=== PATIENT | female | born 1965 | race Caucasian/White ===

== ENCOUNTER 2022-12-06 20:03 | Inpatient (IN) | payer OTHER ==
[~2022-12-06] VITALS: Ht 162.6 cm; Wt 61.5 kg
[2022-12-06 20:54] LABS: BASOPHILS ABSOLUTE AUTO 0.03 K/mm3 (0.00-0.23); BASOPHILS PERCENT AUTO 1 % (0-2); EOSINOPHILS ABSOLUTE AUTO 0.01 K/mm3 (0.00-0.68); EOSINOPHILS PERCENT AUTO 0 % (0-6); Hematocrit 26.5 % (33.0-51.0); Hemoglobin 8.1 g/dL (11.5-16.0); IMMATURE GRAN ABSOLUTE AUTO 0.03 K/mm3 (0.00-0.10); IMMATURE GRAN PERCENT AUTO 1 % (0-1); LYMPHOCYTES ABSOLUTE AUTO 1.41 K/mm3 (0.84-5.20); LYMPHOCYTES PERCENT AUTO 47 % (21-46); MONOCYTES ABSOLUTE AUTO 0.23 K/mm3 (0.16-1.47); MONOCYTES PERCENT AUTO 8 % (4-13); Mean Corpuscular HGB 31.9 pg (26.0-34.0); Mean Corpuscular HGB Conc 30.6 g/dL (31.5-36.5); Mean Corpuscular Volume 104 fL (80-100); Mean Platelet Volume 10.4 fL (9.1-12.4); NEUTROPHILS ABSOLUTE AUTO 1.29 K/mm3 (1.96-9.15); NEUTROPHILS PERCENT AUTO 43 % (41-73); RDW Standard Deviation 69.1 fL (35.1-46.3); Red Blood Cell Count 2.54 M/mm3 (3.80-5.20)
[2022-12-06 20:58] LABS: Platelet Count 42 K/mm3 (150-400)
[2022-12-06 21:12] LABS: Albumin, Blood 1.9 g/dL (3.4-5.0); Albumin/Globulin Ratio 0.2 (0.8-1.8); Bilirubin, Total 3.8 mg/dL (0.1-1.0); Bun/Creatinine Ratio 14.6 (12.0-20.0); Calcium, Blood 7.7 mg/dL (8.5-10.1); Creatinine, Blood 0.62 mg/dL (0.40-1.00); Globulin, Blood 8.4 g/dL (2.2-4.0); Potassium, Blood 3.3 mmol/L (3.5-5.5); Total Protein, Blood 10.3 g/dL (6.4-8.2)
[2022-12-06 23:02] LABS: Magnesium, Blood 1.4 mg/dL (1.6-2.4)
[2022-12-07] VITALS (45 sets, daily range): BP systolic 112–148; BP diastolic 52–101
[2022-12-07 00:02] LABS: International Normalized Ratio 1.95; Prothrombin Time Results 19.7 Sec (9.7-11.5)
[2022-12-07 00:39] LABS: Influenza A, PCR NEGATIVE (NEGATIVE); Influenza B, PCR NEGATIVE (NEGATIVE); Resp Syncytial Virus, PCR NEGATIVE (NEGATIVE); SARS-Cov-2 (COVID-19) PCR, MMC NEGATIVE (NEGATIVE)
[2022-12-07 01:49] LABS: Hematocrit 23.6 % (33.0-51.0); Hemoglobin 7.4 g/dL (11.5-16.0)
--- NOTE | 2022-12-07 02:45 | NUR ---
ADMISSION REPORT RECIEVED FROM ER NURSE. PATIENT WENT TO CT PRIOR TO COMING TO PCU, PER ER NURSE, PATIENT WAS NOT ABLE TO COMPLETE CT DUE TO ANXIETY. PATIENT ARRIVES TO PCU 10 COUGHING AND GAGGING INTO EMESIS BAG. RED TINGED SPUTUM IN EMESIS BAG. PATIENT MOVED TO PCU BED WITH ASSISTANCE OF STAFF. PATIENT CLEANED UP AND NEW ATTENDS IN PLACE. PATIENT IS ALERT TO SELF ONLY STATING HER NAME AND , OTHERWISE UNABLE TO ANSWER ANY OTHER ORIENTATION QUESTIONS. NEW IV PLACED. BP STABLE, TACHYCARDIC, PATIENT ON ROOM AIR WITH SPO2 >93%. BED ALARM ON FOR SAFETY.
--- NOTE | 2022-12-07 06:19 | NUR ---
SHIFT SUMMARY PATIENT WAKES TO VERBAL STIMULI, ORIENTED TO SELF ONLY. BP STABLE, PATIENT TACHYCARDIC SINCE ADMISSION, REMAINS ON RA WITH SPO2 >92%. PATIENT COUGHING UP BLOOD TINGED SPUTUM, ABOUT 100MLs. PUREWICK IN PLACE D/T INCONTINENCE. PATIENT REPOSITIONING SELF IN BED. NO CHANGES SINCE ADMISSION, WILL REPORT TO DAY SHIFT RN.
--- NOTE | 2022-12-07 07:33 | NUR ---
ASSUMED CARE: PT RESTING QUIETLY IN BED AT THIS TIME. SANDOSTATIN GTT AND PROTONIX GTTS RUNNING WELL CONTINUOUS IV FLUIDS. PT IS SOMNOLENT, RESPONSIVE TO NOXIOUS STIMULI. BED ALARM IN PLACE. NO ACUTE NEEDS OR CONCERNS AT THIS TIME.
[2022-12-07 08:14] LABS: BASOPHILS ABSOLUTE AUTO 0.02 K/mm3 (0.00-0.23); BASOPHILS PERCENT AUTO 1 % (0-2); EOSINOPHILS ABSOLUTE AUTO 0.03 K/mm3 (0.00-0.68); EOSINOPHILS PERCENT AUTO 1 % (0-6); Hematocrit 22.7 % (33.0-51.0); Hematocrit 22.8 % (33.0-51.0); Hemoglobin 7.1 g/dL (11.5-16.0); IMMATURE GRAN ABSOLUTE AUTO 0.02 K/mm3 (0.00-0.10); IMMATURE GRAN PERCENT AUTO 1 % (0-1); LYMPHOCYTES ABSOLUTE AUTO 1.44 K/mm3 (0.84-5.20); LYMPHOCYTES PERCENT AUTO 52 % (21-46); MONOCYTES ABSOLUTE AUTO 0.29 K/mm3 (0.16-1.47); MONOCYTES PERCENT AUTO 11 % (4-13); Mean Corpuscular HGB 32.6 pg (26.0-34.0); Mean Corpuscular HGB Conc 31.3 g/dL (31.5-36.5); Mean Corpuscular Volume 104 fL (80-100); Mean Platelet Volume 10.3 fL (9.1-12.4); NEUTROPHILS ABSOLUTE AUTO 0.97 K/mm3 (1.96-9.15); NEUTROPHILS PERCENT AUTO 35 % (41-73); RDW Coefficient Variation 18.1 % (11.7-14.2); RDW Standard Deviation 68.1 fL (35.1-46.3); Red Blood Cell Count 2.18 M/mm3 (3.80-5.20); White Blood Cell Count 2.77 K/mm3 (4.00-11.30)
[2022-12-07 08:29] LABS: Albumin/Globulin Ratio 0.3 (0.8-1.8); Bilirubin, Total 5.3 mg/dL (0.1-1.0); Bun/Creatinine Ratio 10.7 (12.0-20.0); Calcium, Blood 7.7 mg/dL (8.5-10.1); Creatinine, Blood 0.56 mg/dL (0.40-1.00); Globulin, Blood 7.1 g/dL (2.2-4.0); Potassium, Blood 3.8 mmol/L (3.5-5.5); Total Protein, Blood 9.1 g/dL (6.4-8.2)
[2022-12-07 08:42] LABS: Platelet Count 34 K/mm3 (150-400)
--- NOTE | 2022-12-07 08:50 | NUR ---
ROB DAVIS AND ZENON AT BEDSIDE. PT COUGHING UP RUST COLORED SECRETIONS. DR INSTRUCTS FOR 1 UNIT OF BLOOD TO BE TRANSFUSED. DRS NOTIFIED OF CRITICAL LACTIC AND CRITICAL PLATELET COUNTS. PT'S HR INCREASED TO 130S WITH COUGHING WHILE DRS AT BEDSIDE. AWAITING GI CONSULT. DR DAVIS WISHES FOR PT TO BE TRANSFERRED TO ICU DUE TO ACTIVELY BLEEDING, COUGHING UP BLOOD, TACHYCARDIA. PT SHAKING T/O BUT DR DAVIS BENT PT'S WRIST AND FEELS THAT SHAKING IS DUE TO AMMONIA AND NOT WITHDRAWALS. RECREATIONAL VEHICLE REPAIRER AWARE OF TRANSFER ORDER.
--- NOTE | 2022-12-07 09:43 | NUR ---
PT TRANSFERRED TO ICU VIA BED BY TWO STAFF MEMBERS. BLOOD INFUSING WELL OCTREOTIDE AND PROTONIX GTTS. REPORT GIVEN TO GISELLE RUBY.
--- NOTE | 2022-12-07 09:56 | NUR ---
PT'S SISTER CALLED TO GET UPDATE AND STATED THAT SHE IS THE ONE WHO BROUGHT PT IN AFTER SHE WAS "QUIET, VOMITING AND SHAKEY AT DINNER." STATES SISTER DRINKS BEER ALL DAY LONG FROM TIME OF WAKING TO TIME OF SLEEP. PT TOLD HER SISTER THAT SHE DRANK "A CUP" OF BEER YESTERDAY BUT SISTER STATES THAT COULD BE MORE. STATES PT HAS A WHO IS A DATABASE CONSULTANT IN [place] THAT MULTIPLE FAMILY MEMBERS HAVE BEEN TRYING TO GET AHOLD OF. SISTER AND DAUGHTER'S NUMBERS PROVIDED. INFORMATION GIVEN TO ELECTRICAL MAINTENANCE SUPERVISOR THAT WAS OBTAINED FROM PT'S SISTER.
--- NOTE | 2022-12-07 10:09 | NUR ---
TRANSFER PT ARRIVED FROM PCU 10, REPORT FROM FLORI REYES. PT ALERT, COUGHING/RETCHING SHE WAS MOVED TO NEW BED. PRBC INFUSING WELL OCTREOTIDE AND PANTOPRAZOLE. US TECH HERE FOR ECHO. ZOFRAN GIVEN FOR NAUSEA. PT'S SISTER CALLED AND WAS UPDATED BY AMY.
--- NOTE | 2022-12-07 11:53 | NUR ---
REASSESSMENT PT HAS BEEN RESTING IN BED SINCE TRANSFER. SHE HAD ECHO AND ABD ULTRASOUND COMPLETED. PT REFUSED CT OF THE ABDOMEN LAST NIGHT. ATTEMPTED TO GET PT TO AGREE TO ONE THIS MORNING, BUT SHE IS STILL REFUSING. SHE IS ORIENTED TO SELF, KNOWS SHE IS IN THE HOSPITAL, BUT THOUGHT IT WAS THREE STARKEY, AND SAID 2023 FOR THE YEAR. LUNGS ARE CLEAR, 99% ON RA, OCCASIONAL COUGH. SINUS TACH IN THE LOW 100S, BP STABLE. NO EDEMA. ATTENDS ON WITH PUREWICK IN PLACE. CONTINUING TO MONITOR.
[2022-12-07 13:54] LABS: Hematocrit 26.3 % (33.0-51.0); Hemoglobin 8.4 g/dL (11.5-16.0)
[2022-12-07 14:34] LABS: Magnesium, Blood 1.3 mg/dL (1.6-2.4)
--- NOTE | 2022-12-07 17:24 | NUR ---
12/07/22 [address] CHERRY IN ICU 13; SEE ANESTHESIA RECORDS.
[2022-12-07 18:30] LABS: Hematocrit 25.6 % (33.0-51.0); Hemoglobin 8.1 g/dL (11.5-16.0)
--- NOTE | 2022-12-07 18:32 | NUR ---
SHIFT SUMMARY PT HAD HER EGD THIS EVENING AND IS AWAKE AFTER, BUT VERY GROGGY STILL. AFTER RECEIVING ATIVAN FOR A CIWAA OF 10 HER NAUSEA AND TREMORS STOPPED AND SHE SLEPT FOR A COUPLE HOURS. HER LUNGS REMAIN CLEAR, 99% RA. SR WITH FREQUENT PAC. BP STABLE. INCONTINENT OF URINE. ATTEMPTED PURE WICK THROUGHOUT THE DAY, BUT PT MOVES SO MUCH IN BED THAT IT DISLODGES AND DOESN'T WORK. ATTENDS ON CURRENTLY. POST EGD, DR. ARMENTA GAVE ORDERS TO STOP OCTREOTIDE, SWITCH PROTONIX TO BID, AND ADVANCE DIET TOELRATED WHEN PT MORE ALERT. PT'S SISTER AND MJ AT THE BEDSIDE AND WERE UPDATED BY DR. ARMENTA.
--- NOTE | 2022-12-07 21:05 | NUR ---
ASSUMED CARE AT 1900 PATIENT RESPONDS TO VERBAL STIMULI, STATES NAME AND FOLLOWS COMMANDS. MUMBLES AND FALLS ASLEEP DURING CONVERSATION. 02 SATS 99% ON RA, RR 16. HR SR 80s, BP STABLE. PATIENT HAVING NAUSEA, AND SPITTING UP MUCOUSY/PINK TINGED SPUTUM. MEDICATED FOR NAUSEA PER EMAR. INCONTINENT, ATTENDS IN PLACE. CALL LIGHT IN REACH
[2022-12-07 22:41] LABS: Hematocrit 27.2 % (33.0-51.0); Hemoglobin 8.6 g/dL (11.5-16.0)
[2022-12-08] VITALS (30 sets, daily range): BP systolic 104–143; BP diastolic 58–90
[2022-12-08 05:33] LABS: BASOPHILS ABSOLUTE AUTO 0.02 K/mm3 (0.00-0.23); BASOPHILS PERCENT AUTO 1 % (0-2); EOSINOPHILS ABSOLUTE AUTO 0.05 K/mm3 (0.00-0.68); EOSINOPHILS PERCENT AUTO 1 % (0-6); Hematocrit 27.2 % (33.0-51.0); Hemoglobin 8.9 g/dL (11.5-16.0); IMMATURE GRAN ABSOLUTE AUTO 0.01 K/mm3 (0.00-0.10); IMMATURE GRAN PERCENT AUTO 0 % (0-1); LYMPHOCYTES ABSOLUTE AUTO 1.78 K/mm3 (0.84-5.20); LYMPHOCYTES PERCENT AUTO 45 % (21-46); MONOCYTES ABSOLUTE AUTO 0.46 K/mm3 (0.16-1.47); MONOCYTES PERCENT AUTO 12 % (4-13); Mean Corpuscular HGB 32.4 pg (26.0-34.0); Mean Corpuscular HGB Conc 32.7 g/dL (31.5-36.5); Mean Platelet Volume 10.8 fL (9.1-12.4); NEUTROPHILS ABSOLUTE AUTO 1.63 K/mm3 (1.96-9.15); NEUTROPHILS PERCENT AUTO 41 % (41-73); RDW Coefficient Variation 19.6 % (11.7-14.2); RDW Standard Deviation 71.1 fL (35.1-46.3); Red Blood Cell Count 2.75 M/mm3 (3.80-5.20); White Blood Cell Count 3.95 K/mm3 (4.00-11.30)
[2022-12-08 05:42] LABS: International Normalized Ratio 2.1; Prothrombin Time Results 21.1 Sec (9.7-11.5)
[2022-12-08 05:48] LABS: Mean Corpuscular Volume 99 fL (80-100)
[2022-12-08 05:49] LABS: Platelet Count 37 K/mm3 (150-400)
[2022-12-08 06:01] LABS: Albumin, Blood 1.9 g/dL (3.4-5.0); Albumin/Globulin Ratio 0.3 (0.8-1.8); Bilirubin, Total 5.6 mg/dL (0.1-1.0); Bun/Creatinine Ratio 13.7 (12.0-20.0); Calcium, Blood 7.7 mg/dL (8.5-10.1); Creatinine, Blood 0.73 mg/dL (0.40-1.00); Globulin, Blood 7.3 g/dL (2.2-4.0); Potassium, Blood 2.9 mmol/L (3.5-5.5); Total Protein, Blood 9.2 g/dL (6.4-8.2)
--- NOTE | 2022-12-08 06:12 | NUR ---
SHIFT SUMMARY PATIENT RESPONDS TO VERBAL STIMULI, ORIENTED TO SELF AND FOLLOWING DIRECTIONS. SLEPT MOST THE NIGHT. 02 SATS >95% ON RA. HR SR 85. BP STABLE. INCONTINENT OF BLADDER, SEVERAL UNMEASURED VOIDS. NO BOWEL MOVEMENT THIS SHIFT. INDEPENDENT WITH REPOSITIONING. CIWA OF 5. CALL LIGHT IN REACH
[2022-12-08 10:35] LABS: Hematocrit 28.3 % (33.0-51.0)
--- NOTE | 2022-12-08 11:49 | NUR ---
REASSESSMENT PT HAS BEEN RESTING IN BED THROUGHOUT THE MORNING. SHE REMAINS ALERT, ORIENTED TO SELF, KNOWS SHE IS IN THE HOSPITAL. THIS MORNING SHE WAS COUGHING CONSTANTLY WHILE AWAKE UNTIL SHE GAGGED. DR. DAVIS ORDERED SOME COUGH MEDICINE AND THAT HAS HELPED A LOT WITH THE COUGHING. LUNGS REMAIN CLEAR AND SPO2 99% ON RA. SIT WITH RATE IN THE LOW 100S, BP STABLE. PT IS TRYING TO EAT SOME SOUP CURRENTLY. PASSING GAS, BUT NO BM. INCONTINENT OF URINE, ATTENDS ON. CONTINUING TO MONITOR.
[2022-12-08 16:27] LABS: Hematocrit 28.1 % (33.0-51.0)
[2022-12-08 17:01] LABS: Bun/Creatinine Ratio 20.2 (12.0-20.0); Calcium, Blood 7.8 mg/dL (8.5-10.1); Creatinine, Blood 0.74 mg/dL (0.40-1.00); Potassium, Blood 3.1 mmol/L (3.5-5.5)
--- NOTE | 2022-12-08 17:25 | NUR ---
SHIFT SUMMARY: PT TRANSFERED TO PCU THIS AFTERNOON, ARRIVES APPROX 1310. PT ARRIVES ALERT, ORIENTED TO SELF AND STATES SHE IS IN THE HOSPITAL. PT ORIENTED TO ROOM, V/U. WHEN PT ASKED ABOUT ALCOHOL CONSUMPTION, PT DENIES DAILY DRINKING, STATES SHE DRINKS "ONCE IN A WHILE". PT EDUCATED RE: PURPOSE OF CIWA SCORES AND SAFETY R/TO WITHDRAWAL, V/U BUT DOES NOT OFFER MORE INFORMATION RE: CONSUMPTION FREQUENCY. PT RESTS QUIETLY IN ROOM W/FAMILY AT BEDSIDE UNTIL APPROX 1530, WHEN SHE BEGINS TO TALK ABOUT WANTING TO GO HOME. PT DIFFICULT TO REDIRECT, FREQUENTLY ATTEMPTING TO EXIT BED, REQUESTING W/C ESCORT TO ELEVATORS. CIWA SCORED AND PT MEDICATED PER ORDERS. PT HAS PRODUCED 3 BMs THIS AFTERNOON W/SOME BLOOD IN STOOL. LATEST DOSE OF LACTULOSE HELD. AT THIS TIME, PT RESTING QUIETLY IN BED AND TALKING WITH FAMILY IN ROOM. CLINICAL SITTER AT BEDSIDE, BED ALARM ON, AND REMOTE MONITORING IN PLACE.
--- NOTE | 2022-12-08 18:45 | NUR ---
UPDATE: DR ARMENTA HAS BEEN NOTIFIED RE: BLOOD IN STOOL AND PROVIDED W/PT's SISTER's CONTACT INFO TO DISCUSS PLAN OF CARE.
[2022-12-09 03:14] VITALS: BP 124/76
[2022-12-09 03:43] LABS: BASOPHILS ABSOLUTE AUTO 0.02 K/mm3 (0.00-0.23); BASOPHILS PERCENT AUTO 1 % (0-2); EOSINOPHILS ABSOLUTE AUTO 0.05 K/mm3 (0.00-0.68); EOSINOPHILS PERCENT AUTO 1 % (0-6); Hematocrit 27.3 % (33.0-51.0); Hemoglobin 8.7 g/dL (11.5-16.0); IMMATURE GRAN ABSOLUTE AUTO 0.01 K/mm3 (0.00-0.10); IMMATURE GRAN PERCENT AUTO 0 % (0-1); LYMPHOCYTES PERCENT AUTO 44 % (21-46); MONOCYTES ABSOLUTE AUTO 0.45 K/mm3 (0.16-1.47); MONOCYTES PERCENT AUTO 12 % (4-13); Mean Corpuscular HGB 32.1 pg (26.0-34.0); Mean Corpuscular HGB Conc 31.9 g/dL (31.5-36.5); Mean Corpuscular Volume 101 fL (80-100); Mean Platelet Volume 10.5 fL (9.1-12.4); NEUTROPHILS PERCENT AUTO 41 % (41-73); NRBC ABSOLUTE 0.02 K/mm3 (0.00-0.02); NRBC Auto 0.6 /100 WBC (0.0-0.2); RDW Coefficient Variation 19.6 % (11.7-14.2); Red Blood Cell Count 2.71 M/mm3 (3.80-5.20); White Blood Cell Count 3.63 K/mm3 (4.00-11.30)
[2022-12-09 03:46] LABS: Platelet Count 42 K/mm3 (150-400)
[2022-12-09 04:03] LABS: Bun/Creatinine Ratio 27.8 (12.0-20.0); Calcium, Blood 7.6 mg/dL (8.5-10.1); Creatinine, Blood 0.61 mg/dL (0.40-1.00); Magnesium, Blood 1.5 mg/dL (1.6-2.4); Potassium, Blood 2.8 mmol/L (3.5-5.5)
[2022-12-09 05:29] LABS: Phosphorus, Blood 3.6 mg/dL (2.5-4.9)
--- NOTE | 2022-12-09 06:22 | NUR ---
SHIFT SUMMARY PT VERY LETHARGIC THROUGHOUT SHIFT, RESPONDED TO VERBAL STIMULI, A&O TO SELF. PT MORE ALERT SINCE APPROXIMATELY 0600, A&O TO SELF AND PLACE. BP STABLE, PLACED PT ON TELE AT APPROXIMATELY 0600, TELE SHOWING SINUS 90's. PT DENIES CP/PRESSURE. SpO2> 92% RA, DENIES SOB. CIWAs 5-15 THROUGHOUT SHIFT, MANAGED PER EMAR. INCONTINENT OF URINE, NO BM THIS SHIFT, ATTENDS IN PLACE. NO OTHER EVENTS, WILL REPORT TO ONCOMING RN.
[2022-12-09 07:39] VITALS: BP 101/63
[2022-12-09 11:34] VITALS: BP 109/67
--- NOTE | 2022-12-09 12:54 | NUR ---
DAY SHIFT SUMMARY RECIEVED REPORT AT BEDSIDE AND GREETED THE PATIENT. PATIENT HAS A SITTER. ASSESSMENT AND MEDICATION ADMINISTRATION WAS COMPLETED WITH NO ISSUES. THE PATIENT IS ADAMANT ON LEAVING THE HOSPITAL TO GO HOME. SO MUCH SO THAT SHE CALLED HER SISTER AND STATED THAT SHE WAS GOING HOME AND NEEDED A CHANGE OF CLOTHING. THE PATIENT HAD BEEN INFORMED THAT SHE WAS NOT LEAVING THE HOSPITAL UNTIL IT WAS SAFE TO DO SO. THE PATIENT SEEMES TO BE SLEEPING AND RESTING REGULARLY THROUGHOUT THE MORNING. HOWEVER, THE PATIENT WAKES WITH NO ISSUES.
[2022-12-09 14:06] LABS: Bun/Creatinine Ratio 26.5 (12.0-20.0); Calcium, Blood 7.5 mg/dL (8.5-10.1); Creatinine, Blood 0.64 mg/dL (0.40-1.00); Magnesium, Blood 2.2 mg/dL (1.6-2.4); Potassium, Blood 3.5 mmol/L (3.5-5.5)
--- NOTE | 2022-12-09 16:23 | NUR ---
STATUS UPDATE AT 1400 THE PATIENT WAS NOTED HAVING HER SISTER AT BEDSIDE. AT THIS TIME THE PATIENT SEEMED TO BECOME MORE AGITATED AND BEGAN TO EXPRESS THE DESIRE TO LEAVE THE HOSPITAL AND GO HOME. THE SISTER THEN STATED THAT SHE WOULD NOT AGREE TO TRANSPORT THE PATIENT HOME. THE SISTER SEEMED TO EXACERBATE THE ISSUE THE PATIENT WAS PLEASEANT AND FREELY CHOOSING TO STAY IN THE HOSPITAL UNTIL THE SISTER ARRIVED. ONCE THE PATIENT BEGAN TO BECOME AGITATED SHE THEN BECAME ADAMANT ON GOING HOME. THE PATIENT THEN DECIDED THAT SHE WOULD LIKE TO GO HOME AGAINST MEDICAL ADVICE. THE PATIENT WAS CONSULTED BY DR HINES THE PROVIDER. SHE THEN SIGNED THE AMA RELEASE FORM AND BEGAN TO GET UP TO PREPARE HER SELF TO LEAVE. THE SISTER THEN CHOOSE TO LEAVE IN HOPES THAT THE PATIENT WOULD THEN DECIDE INSTEAD TO STAY. THIS HAD THE OPPOSITE EFFECT AND THE PATIENT THEN BECAME BELLIGERENT AND TRIED TO PUSH HER WAY OUT OF THE ROOM. SHE SEEMED TO BE VERY SHAKEY AND WEAK DURING THIS ENCOUNTER. SHE THEN REFUSED TO STAY IN THE ROOM AND MALIHA AND Kassie ASSISTED THE PATIENT ON HER WALK TO THE ENTRANCE OF THE HOSPITAL AND THE PATIENT WAS UNABLE TO MAKE THE DISTANCE BUT HALF WAY DOWN THE HALLWAY WHEN SHE HAD TO SIT DOWN AND TAKE A BREAK. SHE THEN SAT AND HAD A CONVERSATION WITH JOSE JETT, AND Kassie ABOUT THE NEED FOR TRANSPORTATION TO HER HOME AND THAT SHE NEEDS TO WAIT UNTIL IT IS SAFE FOR HER TO GO HOME. THE PATIENT THEN CALMED ENOUGH TO CHANGE OUT HER BRIEF AND RETURENED TO HER ROOM AND NOW AWAITS HER TO CALL BACK SO THAT HE CAN COME AND PICK HER UP. THE PATIENT SEEMED TO BE VERY CALM ONCE THE SISTER WAS NO LONGER THERE.
--- NOTE | 2022-12-09 19:43 | NUR ---
STATUS UPDATE PATIENT ATTEMPTED TO LEAVE THE HOSPITAL ONCE AGAIN SHORTLY AFTER LACTULOSE AND LIBRIUM WAS ADMINISTERED. THE PATIENT CHOOSE HOWEVER, TO RETURN TO HER ROOM AND CONTINUE TO WAIT FOR A RIDE FROM HER . THE PATIENT ALSO MENTIONED THAT THE SITTER WAS A RELATIVE AND THAT SHE WAS GOING TO TAKE HER HOME.
[2022-12-09 19:55] VITALS: BP 132/97
[2022-12-10 00:40] VITALS: BP 113/64
[2022-12-10 04:20] VITALS: BP 114/60
--- NOTE | 2022-12-10 06:35 | NUR ---
SHIFT SUMMARY AT START OF SHIFT, PATIENT AGITATED, VERY TREMULOUS, DISORIENTED. AT TIMES, PT SAYING OFF THE WALL THINGS ("THROW THE DOG IN THAT TRASH BUCKET" *POINTING AT WALL*). CIWA 7-16 OVERNIGHT; MEDICATED PER PROTOCOL, SEE MAR. IMPULSIVE; BED ALARM AND VIDEO MONITORING IN USE. THIS MORNING, PATIENT MUCH MORE CALM; TREMORS SUBSIDING; ABLE TO REORIENT. ON TELE, SHOWING SINUS RHYTHM. HR 80-90S. SBP 110-130S. APPROPRIATE SPO2 ON ROOM AIR. MULTIPLE EPISODES OF BOWEL AND BLADDER INCONTINENCE. MULTIPLE LOOSE STOOLS; LACTULOSE HELD PER ORDER (GOAL 2-3 BMS/DAY). RESTING AT THIS TIME.
[2022-12-10 07:03] VITALS: BP 114/63
[2022-12-10 07:25] LABS: Hematocrit 25.1 % (33.0-51.0); Hemoglobin 8.1 g/dL (11.5-16.0); Mean Corpuscular HGB 32.1 pg (26.0-34.0); Mean Corpuscular HGB Conc 32.3 g/dL (31.5-36.5); Mean Corpuscular Volume 100 fL (80-100); Mean Platelet Volume 10.4 fL (9.1-12.4); RDW Coefficient Variation 19.2 % (11.7-14.2); RDW Standard Deviation 67.7 fL (35.1-46.3); Red Blood Cell Count 2.52 M/mm3 (3.80-5.20); White Blood Cell Count 3.44 K/mm3 (4.00-11.30)
[2022-12-10 07:38] LABS: Platelet Count 46 K/mm3 (150-400)
--- NOTE | 2022-12-10 07:40 | NUR ---
Received report from NOC RN. Patient awake when entering room and is able to communicate her needs with soft mumbling voice. She was incontinent to urine and pulled attends off and threw on floor and then was incontinent to stool shortly after and is being cleaned up currently. She is on RA and sats 94%. She has 20ga IV in LFA and LAC flushed and SL'd. HOOKS but weak. Patient continuely wants to go home but has no ride, states wants to go AMA and very weak.
[2022-12-10 07:42] LABS: Bun/Creatinine Ratio 15.7 (12.0-20.0); Calcium, Blood 7.4 mg/dL (8.5-10.1); Creatinine, Blood 0.57 mg/dL (0.40-1.00); Potassium, Blood 2.9 mmol/L (3.5-5.5)
--- NOTE | 2022-12-10 12:00 | NUR ---
Patient has been resting and is impulsive getting up, but has bed alarm. She awoke and wanted to go home and the chair was her alternative. She is making numerous calls to get a ride home without success. Her family has agreed she needs to stay and no one is giving her ride. She has order for 60 meq od potassium and started new IV as she was not keeping arm straight. She remains incontinent of stool and urine and pull ups in place. She remains tremulous.
[2022-12-10 15:40] VITALS: BP 123/66
--- NOTE | 2022-12-10 18:38 | NUR ---
SHIFT SUMMARY PT A&OX3-4, MOOD UP AND DOWN SINCE ARRIVAL FROM PCU. CIWA COMPLETE. VSS. PT IRRITABLE REQUESTING TO LEAVE, PT ADVISED THAT SHE NEEDS K+ WHICH IS INFUSING. PROVIDED W/ FOOD, WARM BLANKET. MEDICATED PER EMAR FOR AGGITATION/WITHDRAWL SYMPTOMS. CALL LIGHT W/ IN REACH. PT IMPULSIVE- ALARM IN PLACE. UNSTEADY GAIT, TREMORS.
[2022-12-10 19:07] VITALS: BP 124/73
[2022-12-10 19:29] LABS: Bun/Creatinine Ratio 11.8 (12.0-20.0); Creatinine, Blood 0.68 mg/dL (0.40-1.00); Potassium, Blood 4.1 mmol/L (3.5-5.5)
[2022-12-11 05:49] LABS: Hematocrit 26.7 % (33.0-51.0); Hemoglobin 8.5 g/dL (11.5-16.0); Mean Corpuscular HGB 32.7 pg (26.0-34.0); Mean Corpuscular HGB Conc 31.8 g/dL (31.5-36.5); Mean Corpuscular Volume 103 fL (80-100); RDW Coefficient Variation 19.5 % (11.7-14.2); RDW Standard Deviation 69.7 fL (35.1-46.3)
[2022-12-11 05:57] LABS: Platelet Count 48 K/mm3 (150-400)
[2022-12-11 06:14] LABS: Albumin, Blood 1.6 g/dL (3.4-5.0); Anion Gap 2 mmol/L (6-16); Blood Urea Nitrogen 8 mg/dL (8-24); Bun/Creatinine Ratio 12.9 (12.0-20.0); CO2, Blood 27 mmol/L (21-32); Calcium, Blood 7.6 mg/dL (8.5-10.1); Chloride, Blood 107 mmol/L (98-108); Creatinine, Blood 0.62 mg/dL (0.40-1.00); Glomerular Filtration Rate 104 (60-); Glucose, Blood 168 mg/dL (70-99); Phosphorus, Blood 4.2 mg/dL (2.5-4.9); Potassium, Blood 3.2 mmol/L (3.5-5.5); Sodium, Blood 136 mmol/L (136-145)
[2022-12-11 07:31] VITALS: BP 104/62
[2022-12-11] MEDS ORDERED: FOLI1 PO (14:28)
[2022-12-11] MEDS ORDERED: Enulose10 GM/15 M PO (14:28)
[2022-12-11] MEDS ORDERED: PANT20 PO (14:29)
[2022-12-11] MEDS ORDERED: B-1100 M1 PO (14:29)
[2022-12-11] MEDS ORDERED: VISBIOME 112.51 EACH PO (14:29)
[2022-12-11] MEDS ORDERED: LEVO750 PO (14:29)
--- NOTE | 2022-12-11 15:00 | NUR ---
DISCHARGE INSTRUCTIONS COMPLETED AND DISCUSS WITH SISTER EXPRESSING UNDERSTANDING. PT PRESENT AND LISTENED WELL BUT THIS NURSE EXPRESSED CONCERN TO PT ABOUT HER TAKING HER MEDS CORRECTLY. TO [facility] VIA W/C.
== END 2022-12-11 14:52 | disposition home or self-care (01) | DRG 442 ==
LOC: ER 20:03 → PCU 12-07 01:10 → ICUW 12-07 01:10 → PCU 12-07 02:38 → ICUW 12-07 09:38 → PCU 12-08 12:49 → MEDS 12-10 15:04
PROVIDERS: Emergency Medicine; Family Medicine; Family Medicine Adult Medicine; Hospitalist; Internal Medicine Gastroenterology; Student in an Organized Health Care Education/Training Program; ADMIT Internal Medicine
PROC: HZ2ZZZZ Detoxification Services for Substance Abuse Treatment (ICD-10-PCS; 2022-12-07)
PROC: 30233N1 Transfusion of Nonautologous Red Blood Cells into Peripheral Vein, Percutaneous Approach (ICD-10-PCS; 2022-12-07)
PROC: 0DJ08ZZ Inspection of Upper Intestinal Tract, Via Natural or Artificial Opening Endoscopic (ICD-10-PCS; principal; 2022-12-07 13:30)
DX: K76.82 Hepatic encephalopathy (principal); D61.818 Other pancytopenia; D68.9 Coagulation defect, unspecified; E87.20 Acidosis, unspecified; D62 Acute posthemorrhagic anemia; K76.6 Portal hypertension; F10.239 Alcohol dependence with withdrawal, unspecified; K52.1 Toxic gastroenteritis and colitis; E87.1 Hypo-osmolality and hyponatremia; K31.89 Other diseases of stomach and duodenum; Z20.822 Contact with and (suspected) exposure to COVID-19; K70.30 Alcoholic cirrhosis of liver without ascites; D53.9 Nutritional anemia, unspecified; E87.6 Hypokalemia; E88.09 Other disorders of plasma-protein metabolism, not elsewhere classified; E83.42 Hypomagnesemia; E80.6 Other disorders of bilirubin metabolism; E83.51 Hypocalcemia; T47.3X5A Adverse effect of saline and osmotic laxatives, initial encounter; R74.02 Elevation of levels of lactic acid dehydrogenase [LDH]; K70.10 Alcoholic hepatitis without ascites; F17.200 Nicotine dependence, unspecified, uncomplicated; Z88.5 Allergy status to narcotic agent; Z79.01 Long term (current) use of anticoagulants
CPT/HCPCS: 0241U; 36415; 36430; 71045; 76705; 80048; 80053; 80069; 82105; 82140; 82330; 82607; 82746; 82947; 83605; 83690; 83735; 83880; 84100; 85014; 85018; 85025; 85027; 85610; 86850; 86900; 86901; 86923; 87040; 93005; 93010; 93306; 94760; 96365-59; 96367; 96375; 99285-25; A9270; C9113; G0480; J0171; J0612; J0696; J1430; J2001; J2060; J2250; J2354; J2405; J2704; J3411; J3475; J3480; J7030; J7050; J7120; P9016; P9047

== ENCOUNTER 2023-05-11 19:23 | Emergency (ER) | payer OTHER ==
[~2023-05-11] VITALS: Ht 160 cm; Wt 72.6 kg
[~2023-05-11 19:23] MED LIST: B-1100 M1 PO; Enulose10 GM/15 M PO; FOLI1 PO; LEVO750 PO; PANT20 PO; VISBIOME 112.51 EACH PO
[2023-05-11 19:52] LABS: BASOPHILS ABSOLUTE AUTO 0.02 K/mm3 (0.00-0.23); BASOPHILS PERCENT AUTO 1 % (0-2); EOSINOPHILS ABSOLUTE AUTO 0.01 K/mm3 (0.00-0.68); EOSINOPHILS PERCENT AUTO 0 % (0-6); Hematocrit 22.1 % (33.0-51.0); Hemoglobin 6.6 g/dL (11.5-16.0); IMMATURE GRAN ABSOLUTE AUTO 0.02 K/mm3 (0.00-0.10); IMMATURE GRAN PERCENT AUTO 1 % (0-1); LYMPHOCYTES ABSOLUTE AUTO 2.05 K/mm3 (0.84-5.20); LYMPHOCYTES PERCENT AUTO 57 % (21-46); MONOCYTES ABSOLUTE AUTO 0.43 K/mm3 (0.16-1.47); MONOCYTES PERCENT AUTO 12 % (4-13); Mean Corpuscular HGB 33.2 pg (26.0-34.0); Mean Corpuscular HGB Conc 29.9 g/dL (31.5-36.5); Mean Corpuscular Volume 111 fL (80-100); Mean Platelet Volume 10.2 fL (9.1-12.4); NEUTROPHILS ABSOLUTE AUTO 1.04 K/mm3 (1.96-9.15); NEUTROPHILS PERCENT AUTO 29 % (41-73); RDW Coefficient Variation 22.9 % (11.7-14.2); RDW Standard Deviation 92.5 fL (35.1-46.3); Red Blood Cell Count 1.99 M/mm3 (3.80-5.20); White Blood Cell Count 3.57 K/mm3 (4.00-11.30)
[2023-05-11 19:56] LABS: Platelet Count 42 K/mm3 (150-400)
[2023-05-11 20:11] LABS: Albumin, Blood 1.4 g/dL (3.4-5.0); Albumin/Globulin Ratio 0.2 (0.8-1.8); Bilirubin, Total 3.7 mg/dL (0.1-1.0); Bun/Creatinine Ratio 9.7 (12.0-20.0); Calcium, Blood 6.8 mg/dL (8.5-10.1); Creatinine, Blood 0.72 mg/dL (0.40-1.00); Globulin, Blood 8.2 g/dL (2.2-4.0); Potassium, Blood 3.5 mmol/L (3.5-5.5); Total Protein, Blood 9.6 g/dL (6.4-8.2)
[2023-05-11 20:57] LABS: Magnesium, Blood 1.6 mg/dL (1.6-2.4)
[2023-05-11 22:09] LABS: Source, Urine Straight Cath
[2023-05-11 22:27] LABS: Influenza A, PCR NEGATIVE (NEGATIVE); Influenza B, PCR NEGATIVE (NEGATIVE); Resp Syncytial Virus, PCR NEGATIVE (NEGATIVE); SARS-Cov-2 (COVID-19) PCR, MMC NEGATIVE (NEGATIVE)
[2023-05-11 22:38] LABS: U Amphetamine Screen Not Detected; U Barbituate Screen Not Detected; U Benzodiazapine Screen Not Detected; U Buprenorphine Screen Not Detected; U Cannabinoids Screen DETECTED; U Cocaine Screen Not Detected; U Methadone Screen Not Detected; U Methamphetamine Screen Not Detected; U Opiates Screen Not Detected; U Oxycodone Screen Not Detected; U Phencyclidine Screen Not Detected; U Propoxyphene Screen Not Detected
[2023-05-11 22:46] LABS: Blood, Urine 2+ (Neg); Glucose Qualitative, Urine Neg (Neg); Ketones, Urine 1+ (Neg); Leukocyte Esterase, Urine 3+ (Neg); Nitrite, Urine Pos (Neg); Protein, Urine 1+ (Neg); Specific Gravity, Urine 1.015 (1.003-1.022); Urobilinogen, Urine 3+ (Normal)
[2023-05-11 23:02] LABS: Bilirubin, Urine 1+ (Neg)
[2023-05-11 23:13] LABS: Appearance, Urine Cloudy (Clear); Color, Urine Amber (P-Yellow)
[2023-05-11 23:14] LABS: Bacteria Many /hpf; Squamous Epithelial Cells Few /hpf (Few); White Blood Cells, Urine 25-50 /hpf (0-5)
[2023-05-12 00:42] VITALS: BP 121/72
== END 2023-05-12 01:33 | disposition left against medical advice (07) ==
LOC: ER 19:23
PROVIDERS: Emergency Medicine; Physician Assistant
DX: R60.0 Localized edema (principal); K74.60 Unspecified cirrhosis of liver; D64.9 Anemia, unspecified; F10.10 Alcohol abuse, uncomplicated; D69.6 Thrombocytopenia, unspecified; R00.0 Tachycardia, unspecified; Z53.29 Procedure and treatment not carried out because of patient's decision for other reasons; Z88.5 Allergy status to narcotic agent; Z79.899 Other long term (current) drug therapy; F17.200 Nicotine dependence, unspecified, uncomplicated
CPT/HCPCS: 0241U; 36430; 80053; 81001; 82140; 82272; 83690; 83735; 83880; 85025; 86850; 86900; 86901; 86923; 87077; 87086; 87186; 93005; 93010; 96361; 96365; 96375; 99285-25; C9113; J0696; J2060; J7030; P9016

== ENCOUNTER 2023-05-20 12:44 | Emergency (ER) | payer OTHER ==
[~2023-05-20] VITALS: Ht 162.6 cm; Wt 67.6 kg
[2023-05-20 14:08] LABS: Albumin, Blood 1.4 g/dL (3.4-5.0); Albumin/Globulin Ratio 0.2 (0.8-1.8); Bilirubin, Total 5.1 mg/dL (0.1-1.0); Bun/Creatinine Ratio 11.8 (12.0-20.0); Calcium, Blood 7.2 mg/dL (8.5-10.1); Creatinine, Blood 0.68 mg/dL (0.40-1.00); Potassium, Blood 3.7 mmol/L (3.5-5.5); Total Protein, Blood 9.4 g/dL (6.4-8.2)
[2023-05-20 14:13] LABS: BASOPHILS ABSOLUTE AUTO 0.01 K/mm3 (0.00-0.23); BASOPHILS PERCENT AUTO 0 % (0-2); EOSINOPHILS PERCENT AUTO 0 % (0-6); Hematocrit 25.1 % (33.0-51.0); Hemoglobin 7.8 g/dL (11.5-16.0); IMMATURE GRAN ABSOLUTE AUTO 0.04 K/mm3 (0.00-0.10); IMMATURE GRAN PERCENT AUTO 1 % (0-1); LYMPHOCYTES ABSOLUTE AUTO 1.21 K/mm3 (0.84-5.20); LYMPHOCYTES PERCENT AUTO 25 % (21-46); MONOCYTES ABSOLUTE AUTO 0.59 K/mm3 (0.16-1.47); MONOCYTES PERCENT AUTO 12 % (4-13); Mean Corpuscular HGB 34.2 pg (26.0-34.0); Mean Corpuscular HGB Conc 31.1 g/dL (31.5-36.5); Mean Corpuscular Volume 110 fL (80-100); Mean Platelet Volume 10.9 fL (9.1-12.4); NEUTROPHILS ABSOLUTE AUTO 2.97 K/mm3 (1.96-9.15); NEUTROPHILS PERCENT AUTO 62 % (41-73); RDW Coefficient Variation 21.9 % (11.7-14.2); RDW Standard Deviation 87.2 fL (35.1-46.3); Red Blood Cell Count 2.28 M/mm3 (3.80-5.20); White Blood Cell Count 4.82 K/mm3 (4.00-11.30)
[2023-05-20 14:35] LABS: Platelet Count 41 K/mm3 (150-400)
[2023-05-20 15:38] LABS: Source, Urine Clean Catch
[2023-05-20 16:07] LABS: Appearance, Urine Hazy (Clear); Blood, Urine 4+ (Neg); Glucose Qualitative, Urine 1+ (Neg); Ketones, Urine 1+ (Neg); Leukocyte Esterase, Urine 3+ (Neg); Nitrite, Urine Pos (Neg); Protein, Urine 2+ (Neg); Specific Gravity, Urine 1.015 (1.003-1.022); Urobilinogen, Urine 3+ (Normal)
[2023-05-20 16:24] LABS: Bilirubin, Urine 1+ (Neg)
[2023-05-20 16:25] LABS: Color, Urine Amber (P-Yellow)
[2023-05-20 16:26] LABS: White Blood Cells, Urine 25-50 /hpf (0-5)
[2023-05-20 16:39] LABS: Bacteria Many /hpf; Squamous Epithelial Cells Few /hpf (Few)
[2023-05-20] MEDS ORDERED: CEFP200 PO (16:47)
[2023-05-20 17:00] VITALS: BP 147/73
== END 2023-05-20 17:05 | disposition home or self-care (01) ==
LOC: ER 12:44
PROVIDERS: Physician Assistant
DX: M25.472 Effusion, left ankle (principal); M25.471 Effusion, right ankle; E88.09 Other disorders of plasma-protein metabolism, not elsewhere classified; K76.9 Liver disease, unspecified; F10.90 Alcohol use, unspecified, uncomplicated; N39.0 Urinary tract infection, site not specified; Z88.5 Allergy status to narcotic agent; Z79.899 Other long term (current) drug therapy; Z86.19 Personal history of other infectious and parasitic diseases
CPT/HCPCS: 36415; 71046; 80053; 81001; 82140; 83605; 85025; 87040; 87077; 87086; 87186; 96365; 96375; 99283-25; A9270; J1885; J2060; J2543